=== PATIENT | male | born 1935 | race Caucasian/White ===

== ENCOUNTER 2018-04-13 17:35 | Inpatient (IN) | payer MEDICARE, OTHER ==
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
[2018-04-13 18:25] LABS: ABS Basophils 0.1 10^3/ul (0-0.2); ABS Eosinophils 0 10^3/ul (0-0.6); ABS Lymphocytes 1.7 10^3/ul (1.0-4.8); ABS Monocytes 0.8 10^3/ul (0-0.8); ABS Neutrophils 5.8 10^3/ul (1.5-7.7); ABS Nucleated RBC 0 10^3/ul; Eosinophil % 0.4 %; Hematocrit 42 % (42-52); Lymphocyte % 20.3 %; Mean Corpuscular HGB Conc 34 g/dl (31-36); Mean Corpuscular Hemoglobin 30 pg (27-31); Mean Corpuscular Volume 89 fL (80-94); Mean Platelet Volume 9.1 fL (7.4-10.4); Nucleated Red Blood Cells % 0.1; Platelet Count 239 10^3/ul (150-450); Red Blood Count 4.72 10^6/ul (4.00-5.40); Red Cell Distribution Width 13 % (10.5-15); White Blood Count 8.5 10^3/ul (3.5-10.8)
[2018-04-13 18:39] LABS: INR 1.14 (0.77-1.02)
[2018-04-13 18:42] LABS: BUN/Creatinine Ratio 15.5 (8-20); C Reactive Protein 182.66 mg/L (<8.01); Calcium 9.5 mg/dL (8.6-10.3); EGFR Non-African American 15.7 (>60); Globulin 4.1 g/dL (2-4); Potassium 4.3 mmol/L (3.5-5.0); Total Protein 8.1 g/dL (6.4-8.9)
[2018-04-13 18:45] LABS: Troponin I 0.06 ng/mL (<0.04)
[2018-04-13 18:46] LABS: Alcohol < 10 mg/dL (<10)
[2018-04-13 21:03] LABS: TSH (Thyroid Stimulating Horm) 1.74 mcIU/mL (0.34-5.60)
[2018-04-13 21:11] LABS: Erythrocyte Sed Rate 99 mm/Hr (0-40)
[2018-04-13] MEDS ORDERED: Senna TAB PO PRN (21:12)
[2018-04-13] MEDS ORDERED: Acetaminophen TAB* 325 MG PO PRN (21:12)
[2018-04-13] MEDS ORDERED: Docusate CAP* 100 MG PO PRN (21:12)
[2018-04-13] MEDS ORDERED: Ondansetron INJ* 2 MG/ML VIAL IV PRN (21:12)
[2018-04-13] MEDS ORDERED: Al Hydrox/Mg Hydrox/Simet LIQ* 30 ML UDC PO PRN (21:12)
[2018-04-13 21:32] LABS: Uric Acid 10.8 mg/dL (4.4-7.6)
--- NOTE | 2018-04-13 21:37 | PN ---
Progress Note - Progress Note Date of Service: 04/13/18 Note: Full consult note dictated. R ankle erythema with joint pain. After verbal consent, ankle tapped. Sample taken to labs for eval.
[2018-04-13 21:49] LABS: Body Fluid Source Synovial Fluid
[2018-04-13 23:40] LABS: Body Fluid Mono 14 %
[2018-04-13] MEDS: Heparin VIAL(*) 5000 UNITS/ML VIAL (FIVE THOUSAND) SUBCUT SCH (23:51)
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
[2018-04-14] MEDS: Heparin VIAL(*) 5000 UNITS/ML VIAL (FIVE THOUSAND) SUBCUT SCH ×3 (05:48→21:25)
--- NOTE | 2018-04-14 06:08 | PN ---
Progress Note - Progress Note Date of Service: 04/14/18 Note: Preliminary read of synovial fluid shows crystals which is consistent with gout - will start prednisone 40 mg PO QD as colchicine is C/I with his renal failure
[2018-04-14 07:40] LABS: ABS Basophils 0.1 10^3/ul (0-0.2); ABS Eosinophils 0.1 10^3/ul (0-0.6); ABS Lymphocytes 1.3 10^3/ul (1.0-4.8); ABS Monocytes 0.7 10^3/ul (0-0.8); ABS Neutrophils 5.3 10^3/ul (1.5-7.7); ABS Nucleated RBC 0 10^3/ul; Eosinophil % 0.7 %; Hematocrit 42 % (42-52); Hemoglobin 14.4 g/dl (14.0-18.0); Lymphocyte % 17.4 %; Mean Corpuscular HGB Conc 34 g/dl (31-36); Mean Corpuscular Hemoglobin 30 pg (27-31); Mean Corpuscular Volume 89 fL (80-94); Mean Platelet Volume 9.2 fL (7.4-10.4); Nucleated Red Blood Cells % 0.1; Platelet Count 231 10^3/ul (150-450); Red Blood Count 4.74 10^6/ul (4.00-5.40); Red Cell Distribution Width 14 % (10.5-15); White Blood Count 7.4 10^3/ul (3.5-10.8)
[2018-04-14 08:01] LABS: Albumin 3.9 g/dL (3.2-5.2); BUN/Creatinine Ratio 17.1 (8-20); Calcium 9.2 mg/dL (8.6-10.3); EGFR African American 20.1 (>60); EGFR Non-African American 16.6 (>60); Globulin 3.9 g/dL (2-4); Indirect Bilirubin 0.9 mg/dL (0.3-1.0); Total Bilirubin 1.1 mg/dL (0.2-1.0); Total Protein 7.8 g/dL (6.4-8.9)
[2018-04-14] MEDS ORDERED: Pneumococcal *Vac Polyvalent 0.5 ML VIAL IM ONE (09:00)
[2018-04-14 10:20] LABS: Urine Appearance Cloudy; Urine Bacteria Absent (Absent); Urine Bilirubin Negative (Negative); Urine Blood 1+ (Negative); Urine Color Yellow; Urine Glucose 1+(50 mg/dL) (Negative); Urine Ketones Trace (Negative); Urine Nitrite Negative (Negative); Urine Protein 2+(100 mg/dL) (Negative); Urine Red Blood Cell 2+(6-10/hpf) (Absent); Urine Specific Gravity 1.014 (1.010-1.030); Urine Urobilinogen Negative (Negative); Urine White Blood Cell Trace(0-5/hpf) (Absent)
--- NOTE | 2018-04-14 10:39 | ECHO ---
Patient: VIOLET [facility] Rec#: [id number] : 1935 Date: 04/14/2018 Age: 82y Height: 165.1 cm / 65.0 in Weight: 72.6 kg / 160.0 lbs Sex: M BSA: 1.8 Room#: [facility] Admit Date#: 04/13/2018 Type: Inpatient Referring: Kristal Lowe Reading: Austyn Mckeon MD Licensing Director: Louisa Sherman RN RDCS Transthoracic Echocardiogram Indication: Syncope BP: 135/92 HR: 88 Rhythm: NSR with PVCs Findings History: Gout Technical Comments: The study quality is fair. Left Ventricle: The left ventricular chamber size is normal. Moderate concentric left ventricular hypertrophy is observed. Global left ventricular wall motion and contractility are within normal limits. There is normal left ventricular systolic function. The estimated ejection fraction is 55-60%. Abnormal left ventricular diastolic filling is observed, consistent with impaired relaxation. Left Atrium: The left atrium is mildly dilated. Right Ventricle: The right ventricular chamber size and systolic function are within normal limits. Right Atrium: The right atrial cavity size is normal. Aortic Valve: The aortic valve structure is normal. The aortic valve leaflets are severely thickened with reduced systolic excursion. There is trace to mild aortic regurgitation. There is moderate to severe aortic stenosis. The mean gradient of the aortic valve is 31.3 mmHg. The peak instantaneous gradient of the aortic valve is 51.3 mmHg. The aortic valve area, by peak velocities, is calculated at 0.6 cm2. The aortic valve area, by VTI's, is calculated at 0.7 cm2. The dimensionless index is 0.24-0.29. Highest aortic valve velocity was acquired with Pedoff in right sternal border position. Mitral Valve: Severe mitral annular calcification present. The mitral valve leaflets are mildly thickened. There is mild mitral regurgitation. There is borderline mitral stenosis. Tricuspid Valve: The tricuspid valve leaflets are normal. There is trace tricuspid regurgitation. Unable to estimate the right ventricular systolic pressure. There is no tricuspid stenosis. Pulmonic Valve: The pulmonic valve structure is not well visualized. There is a trace pulmonic regurgitation. There is no pulmonic stenosis. Pericardium: There is no significant pericardial effusion. Aorta: The ascending aorta is not well visualized. There is no dilatation of the aortic arch. There is no dilation of the aortic root. Pulmonary Artery: The main pulmonary artery is not well visualized. Venous: The inferior vena cava appears normal in size. There is an approximate 50% respiratory change in the inferior vena cava dimension. Summary: There was not any prior study for comparison. Conclusions The left ventricular chamber size is normal. Moderate concentric left ventricular hypertrophy is observed. The estimated ejection fraction is 55-60%. Abnormal left ventricular diastolic filling is observed, consistent with impaired relaxation. The left atrium is mildly dilated. There is moderate to severe aortic stenosis. There is trace to mild aortic regurgitation. Severe mitral annular calcification present. There is mild mitral regurgitation. There is trace tricuspid regurgitation. Unable to estimate the right ventricular systolic pressure. Measurements Name Value Normal Range RVIDd (AP) 2D 2.4 cm (0.9 - 2.6) RVDdMajor (2D) 2.6 cm (2.2 - 4.4) RAd ISD 4CH 4.3 cm (3.4 - 4.9) RA (A4C)W 3.1 cm (2.9 - 4.6) IVSd (2D) 1.3 cm (0.6 - 1) LVPWd (2D) 1.3 cm (0.6 - 1) LVIDd (2D) 4 cm (3.6 - 5.4) LVIDs (2D) 2.8 cm - LV FS (2D) 30 % (25 - 45) Aortic Annulus 1.8 cm (1.4 - 2.6) Ao root diameter (2D) 2.4 cm (2.1 - 3.5) Aortic arch 2.2 cm (1.8 - 3.4) LA dimension (AP) 2D 2.9 cm (2.3 - 3.8) LAd ISD 4CH 4.9 cm (2.9 - 5.3) LA ISD 4CH W 3.8 cm (2.5 - 4.5) Name Value Normal Range LA ESV SP 4CH (A/L) 56 ml - LA ESV SP 2CH (A/L) 84 ml - LA ESV BP (A/L) 69 ml - LA ESV BP (A/L) index 38.5 ml/m2 - LA ESV SP 4CH (MOD) 51 ml - LA ESV SP 2CH (MOD) 75 ml - Name Value Normal Range MV E-wave Vmax 0.8 m/sec - MV deceleration time 267 msec - MV A-wave Vmax 1.5 m/sec - MV E:A ratio 0.53 ratio - LV septal e' Vmax 0.04 m/sec - LV lateral e' Vmax 0.07 m/sec - LV E:e' septal ratio 20 ratio - LV E:e' lateral ratio 11.4 ratio - Name Value Normal Range AV Vmax 3.6 m/sec - AV VTI 68.3 cm - AV peak gradient 51.3 mmHg - AV mean gradient 31.3 mmHg - LVOT diameter 1.8 cm - LVOT Vmax 0.85 m/sec - LVOT VTI 19.7 cm - LVOT peak gradient 2.9 mmHg - LVOT mean gradient 1.4 mmHg - DOI (VTI) 0.29 ratio - DOI (Vmax) 0.24 ratio - BRANDI (continuity Vmax) 0.6 cm2 - BRANDI (continuity VTI) 0.7 cm2 - THERESE Vmax 0.47 m/sec - Name Value Normal Range MV Vmax 1.8 m/sec - MV VTI 34 cm - MV peak gradient 12.6 mmHg - MV mean gradient 3.8 mmHg - MV PHT 78 msec - MVA (PHT) 2.8 cm2 - MVA (continuity VTI) 1.6 cm2 - Name Value Normal Range PV Vmax 1.2 m/sec -
[2018-04-14 10:46] LABS: Barbiturates Urine Screen None Detected (None Detect); Benzodiazepine Urine Screen None Detected (None Detect); Urine Cannabinoids Screen None Detected (None Detect)
[2018-04-14 11:44] LABS: Urine Creatinine Concentration 96.82 mg/dL
[2018-04-14] MEDS: Tamsulosin CAP* 0.4 MG PO SCH (11:51)
[2018-04-14] MEDS: predniSONE TAB* 20 MG PO SCH (11:51)
--- NOTE | 2018-04-14 14:02 | PN ---
Progress Note - Progress Note Date of Service: 04/14/18 SOAP: Subjective: []Patient was seen and examined at bedside. He has right ankle pain with any ROM or palpation of the ankle. He does have a history of gout in this same ankle. Denies other joint or extremity pain. Objective: []General: Well appearing, NAD RLE: Medial aspect of the ankle is erythematous and tender to gentle palpation, no streaking of erythema proximally. Active flexion and extension of the ankle intact though limited by pain, able to invert and suzanne the foot as well also limited by pain. 2+ DP pulse, sensation intact to light touch distally Assessment: []Gout R ankle Plan: []Fluid analysis shows monosodium urate crystals: consistent with gout rather than septic joint. WBAT Continue prednisone as renal function does not support NSAID treatment at this time Vital Signs Temp 98.5 F 04/14/18 03:25 Pulse 94 04/14/18 03:25 Resp 16 04/14/18 03:25 BP 135/92 04/14/18 03:25 Pulse Ox 98 04/14/18 03:25 Intake & Output 04/13/18 04/14/18 04/14/18 18:59 06:59 18:59 Intake Total 0 Output Total 0 Balance 0 Weight 160 lb 175 lb 6.4 oz Intake: Oral 0 Output: Urine 0 Other: # Bowel Movements 0 Laboratory Last Values WBC 7.4 10^3/ul (3.5-10.8) 04/14/18 07:33 RBC 4.74 10^6/ul (4.00-5.40) 04/14/18 07:33 Hgb 14.4 g/dl (14.0-18.0) 04/14/18 07:33 Hct 42 % (42-52) 04/14/18 07:33 MCV 89 fL (80-94) 04/14/18 07:33 MCH 30 pg (27-31) 04/14/18 07:33 MCHC 34 g/dl (31-36) 04/14/18 07:33 RDW 14 % (10.5-15) 04/14/18 07:33 Plt Count 231 10^3/ul (150-450) 04/14/18 07:33 MPV 9.2 fL (7.4-10.4) 04/14/18 07:33 Neut % (Auto) 71.3 % 04/14/18 07:33 Lymph % (Auto) 17.4 % 04/14/18 07:33 [place] % (Auto) 9.7 % 04/14/18 07:33 Eos % (Auto) 0.7 % 04/14/18 07:33 Baso % (Auto) 0.9 % 04/14/18 07:33 Absolute Neuts (auto) 5.3 10^3/ul (1.5-7.7) 04/14/18 07:33 Absolute Lymphs (auto) 1.3 10^3/ul (1.0-4.8) 04/14/18 07:33 Absolute Monos (auto) 0.7 10^3/ul (0-0.8) 04/14/18 07:33 Absolute Eos (auto) 0.1 10^3/ul (0-0.6) 04/14/18 07:33 Absolute Basos (auto) 0.1 10^3/ul (0-0.2) 04/14/18 07:33 Absolute Nucleated RBC 0 10^3/ul 04/14/18 07:33 Nucleated RBC % 0.1 04/14/18 07:33 ESR 99 mm/Hr (0-40) H 04/13/18 18:06 INR (Anticoag Therapy) 1.14 (0.77-1.02) H 04/13/18 18:06 APTT 32.0 seconds (26.0-36.3) 04/13/18 18:06 D-Dimer, Quantitative 469 ng/mL (Less Than 230) H 04/13/18 18:06 Sodium 138 mmol/L (135-145) 04/14/18 07:33 Potassium 4.0 mmol/L (3.5-5.0) 04/14/18 07:33 Chloride 105 mmol/L (101-111) 04/14/18 07:33 Carbon Dioxide 19 mmol/L (22-32) L 04/14/18 07:33 Anion Gap 14 mmol/L (2-11) H 04/14/18 07:33 BUN 61 mg/dL (6-24) H 04/14/18 07:33 Creatinine 3.56 mg/dL (0.67-1.17) H 04/14/18 07:33 Est GFR ( Amer) 20.1 (>60) 04/14/18 07:33 Est GFR (Non-Af Amer) 16.6 (>60) 04/14/18 07:33 BUN/Creatinine Ratio 17.1 (8-20) 04/14/18 07:33 Glucose 100 mg/dL (70-100) 04/14/18 07:33 Lactic Acid 1.1 mmol/L (0.5-2.0) 04/13/18 18:08 Uric Acid 10.8 mg/dL (4.4-7.6) H 04/13/18 18:06 Calcium 9.2 mg/dL (8.6-10.3) 04/14/18 07:33 Total Bilirubin 1.10 mg/dL (0.2-1.0) H 04/14/18 07:33 Direct Bilirubin 0.20 mg/dL (0.03-0.18) H 04/14/18 07:33 Indirect Bilirubin 0.9 mg/dL (0.3-1.0) 04/14/18 07:33 AST 17 U/L (13-39) 04/14/18 07:33 ALT 20 U/L (7-52) 04/14/18 07:33 Alkaline Phosphatase 73 U/L (34-104) 04/14/18 07:33 Troponin I 0.06 ng/mL (<0.04) H* 04/14/18 00:05 C-Reactive Protein 182.66 mg/L (<8.01) H 04/13/18 18:06 B-Natriuretic Peptide 154 pg/mL (<=100) H 04/13/18 18:09 Total Protein 7.8 g/dL (6.4-8.9) 04/14/18 07:33 Albumin 3.9 g/dL (3.2-5.2) 04/14/18 07:33 Globulin 3.9 g/dL (2-4) 04/14/18 07:33 Albumin/Globulin Ratio 1.0 (1-3) 04/14/18 07:33 TSH 1.74 mcIU/mL (0.34-5.60) 04/13/18 18:08 Urine Color Yellow 04/14/18 09:45 Urine Appearance Cloudy 04/14/18 09:45 Urine pH 5.0 (5-9) 04/14/18 09:45 Ur Specific [place] 1.014 (1.010-1.030) 04/14/18 09:45 Urine Protein 2+(100 mg/dl) (Negative) A 04/14/18 09:45 Urine Ketones Trace (Negative) A 04/14/18 09:45 Urine Blood 1+ (Negative) A 04/14/18 09:45 Urine Nitrate Negative (Negative) 04/14/18 09:45 Urine Bilirubin Negative (Negative) 04/14/18 09:45 Urine Urobilinogen Negative (Negative) 04/14/18 09:45 Ur Leukocyte Esterase Negative (Negative) 04/14/18 09:45 Urine WBC (Auto) Trace(0-5/hpf) (Absent) 04/14/18 09:45 Urine RBC (Auto) 2+(6-10/hpf) (Absent) A 04/14/18 09:45 Urine Bacteria Absent (Absent) 04/14/18 09:45 Ur Creatinine Concen 96.82 mg/dL 04/14/18 09:45 U Sodium Concentration 48 mmol/L 04/14/18 09:45 Urine Glucose 1+(50 mg/dl) (Negative) A 04/14/18 09:45 Fluid Source Synovial fluid 04/13/18 21:35 Fluid Volume 1.0 mL 04/13/18 21:35 Fluid Color Yellow 04/13/18 21:35 Fluid Appearance Cloudy 04/13/18 21:35 Fluid WBC 4384 /mcL (0-538350) 04/13/18 21:35 Fluid RBC 654 /mcL 04/13/18 21:35 Fluid Tot Cell Count 100 04/13/18 21:35 Fluid Neutrophils 82 % 04/13/18 21:35 Fluid Lymphocytes 4 % 04/13/18 21:35 Fluid Monocytes 14 % 04/13/18 21:35 Fluid Cell Count Rvw By 04/13/18 21:35 Fluid Crystals Monosodium urate (None Seen) A 04/13/18 21:35 Fluid Crystal Interp 04/13/18 21:35 Fluid Comment 04/13/18 21:35 Urine Opiates Screen None detected (None Detect) 04/14/18 09:45 Ur Barbiturates Screen None detected (None Detect) 04/14/18 09:45 Ur Phencyclidine Scrn None detected (None Detect) 04/14/18 09:45 Ur Amphetamines Screen None detected (None Detect) 04/14/18 09:45 U Benzodiazepines Scrn None detected (None Detect) 04/14/18 09:45 Urine Cocaine Screen None detected (None Detect) 04/14/18 09:45 U Cannabinoids Screen None detected (None Detect) 04/14/18 09:45 Serum Alcohol < 10 mg/dL (<10) 04/13/18 18:08
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
--- NOTE | 2018-04-14 20:26 | PN ---
Progress Note - Progress Note Date of Service: 04/14/18 Note: Pt seen and examined. Gout in right ankle. Responding to medications. Pt with renal insufficiency as well as potential need for valve replacement. Pt lying comfortably in bed. Able to move ankle more. Talking on phone. Verbalized understanding and will see pt back on an as needed basis.
[2018-04-15] MEDS: Heparin VIAL(*) 5000 UNITS/ML VIAL (FIVE THOUSAND) SUBCUT SCH ×3 (06:24→21:57)
[2018-04-15] MEDS: Tamsulosin CAP* 0.4 MG PO SCH (09:29)
[2018-04-15] MEDS: predniSONE TAB* 20 MG PO SCH (09:29)
[2018-04-15] MEDS ORDERED: Magnesium Sulfate 1 GM IV* 1 GM/100 ML BAG IV ONE (13:31)
[2018-04-15 14:40] LABS: ABS Basophils 0 10^3/ul (0-0.2); ABS Eosinophils 0 10^3/ul (0-0.6); ABS Lymphocytes 0.6 10^3/ul (1.0-4.8); ABS Monocytes 0.2 10^3/ul (0-0.8); ABS Neutrophils 7.9 10^3/ul (1.5-7.7); ABS Nucleated RBC 0 10^3/ul; Eosinophil % 0 %; Hematocrit 40 % (42-52); Hemoglobin 13.6 g/dl (14.0-18.0); Mean Corpuscular HGB Conc 34 g/dl (31-36); Mean Corpuscular Hemoglobin 30 pg (27-31); Mean Corpuscular Volume 88 fL (80-94); Mean Platelet Volume 9.3 fL (7.4-10.4); Nucleated Red Blood Cells % 0; Platelet Count 256 10^3/ul (150-450); Red Blood Count 4.59 10^6/ul (4.00-5.40); Red Cell Distribution Width 13 % (10.5-15); White Blood Count 8.7 10^3/ul (3.5-10.8)
[2018-04-15 15:12] LABS: Albumin 3.8 g/dL (3.2-5.2); Calcium 9.1 mg/dL (8.6-10.3); EGFR African American 21.9 (>60); EGFR Non-African American 18.1 (>60); Globulin 3.8 g/dL (2-4); Magnesium 2.4 mg/dL (1.9-2.7); Potassium 4.1 mmol/L (3.5-5.0); Total Bilirubin 0.5 mg/dL (0.2-1.0); Total Protein 7.6 g/dL (6.4-8.9)
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
[2018-04-15] MEDS ORDERED: NS 0.9% 500 ML* 500 ML IV ONE (17:16)
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
[2018-04-16] MEDS: Heparin VIAL(*) 5000 UNITS/ML VIAL (FIVE THOUSAND) SUBCUT SCH ×3 (05:29→21:28)
[2018-04-16] MEDS: Tamsulosin CAP* 0.4 MG PO SCH (08:47)
[2018-04-16] MEDS: predniSONE TAB* 20 MG PO SCH (08:47)
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
[2018-04-16] MEDS ORDERED: Sodium Bicarbonate (ANTACID)* 650 MG TAB PO SCH ×2 (10:20→14:00)
[2018-04-16 10:52] LABS: BUN/Creatinine Ratio 23.8 (8-20); Calcium 9.1 mg/dL (8.6-10.3); EGFR African American 22.4 (>60); EGFR Non-African American 18.5 (>60); Magnesium 2.5 mg/dL (1.9-2.7)
[2018-04-16 11:50] LABS: Potassium 4.3 mmol/L (3.5-5.0)
[2018-04-16] MEDS: Sodium Citrate/Citric Acid* 15 ML UDC PO SCH ×3 (12:52→21:28)
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
[2018-04-16] MEDS: Metoprolol Tartrate TAB* 25 MG PO SCH ×2 (15:12→21:28)
[2018-04-16 16:40] LABS: HDL Cholesterol 35.5 mg/dL
[2018-04-17] MEDS: Heparin VIAL(*) 5000 UNITS/ML VIAL (FIVE THOUSAND) SUBCUT SCH ×3 (05:12→21:55)
[2018-04-17] MEDS: Sodium Citrate/Citric Acid* 15 ML UDC PO SCH ×3 (09:09→21:54)
[2018-04-17] MEDS: predniSONE TAB* 20 MG PO SCH (09:10)
[2018-04-17] MEDS: Tamsulosin CAP* 0.4 MG PO SCH (09:10)
[2018-04-17] MEDS: Metoprolol Tartrate TAB* 25 MG PO SCH ×2 (09:10→21:54)
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
[2018-04-17] MEDS ORDERED: Atorvastatin* 20 MG TAB PO SCH (21:00)
[2018-04-18] MEDS: Heparin VIAL(*) 5000 UNITS/ML VIAL (FIVE THOUSAND) SUBCUT SCH ×2 (05:36→13:48)
[2018-04-18 07:00] LABS: BUN/Creatinine Ratio 29.9 (8-20); Calcium 8.3 mg/dL (8.6-10.3); EGFR African American 28.4 (>60); EGFR Non-African American 23.5 (>60); Potassium 4.3 mmol/L (3.5-5.0)
[2018-04-18 08:30] VITALS: BP 141/91
[2018-04-18] MEDS: Sodium Citrate/Citric Acid* 15 ML UDC PO SCH ×2 (08:39→13:48)
[2018-04-18] MEDS: Tamsulosin CAP* 0.4 MG PO SCH (08:41)
[2018-04-18] MEDS: predniSONE TAB* 20 MG PO SCH (08:41)
[2018-04-18] MEDS: Metoprolol Tartrate TAB* 25 MG PO SCH (08:41)
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
== END 2018-04-18 16:08 | disposition home or self-care (01) | DRG 469 ==
LOC: ED 17:35 → MEDTELE 21:12
PROVIDERS: ADMIT Pediatrics; ATTEND Internal Medicine
PROC: 4A00X4Z Measurement of Central Nervous Electrical Activity, External Approach (ICD-10-PCS; principal; 2018-04-14)
PROC: 0T9B70Z Drainage of Bladder with Drainage Device, Via Natural or Artificial Opening (ICD-10-PCS; 2018-04-14)
DX: N17.9 Acute kidney failure, unspecified (principal); N13.8 Other obstructive and reflux uropathy; E87.2 Acidosis; I42.9 Cardiomyopathy, unspecified; I47.2 Ventricular tachycardia; R55 Syncope and collapse; N32.0 Bladder-neck obstruction; M10.9 Gout, unspecified; I10 Essential (primary) hypertension; M25.571 Pain in right ankle and joints of right foot; Z66 Do not resuscitate; S01.81XA Laceration without foreign body of other part of head, initial encounter; H57.89 Other specified disorders of eye and adnexa; I08.3 Combined rheumatic disorders of mitral, aortic and tricuspid valves; N13.30 Unspecified hydronephrosis; N40.1 Benign prostatic hyperplasia with lower urinary tract symptoms; N40.0 Benign prostatic hyperplasia without lower urinary tract symptoms; N32.3 Diverticulum of bladder; N08 Glomerular disorders in diseases classified elsewhere; Z82.49 Family history of ischemic heart disease and other diseases of the circulatory system; Z87.891 Personal history of nicotine dependence; Z82.3 Family history of stroke; V49.9XXA Car occupant (driver) (passenger) injured in unspecified traffic accident, initial encounter; Y92.9 Unspecified place or not applicable; Z79.82 Long term (current) use of aspirin
CPT/HCPCS: 36415; 36600; 70551; 76770; 80048; 80053; 80061; 80307; 80320; 81003; 81015; 82248; 82570; 82803; 83605; 83735; 83880; 84300; 84443; 84484; 84550; 85025; 85379; 85610; 85652; 85730; 86140; 87040; 87070; 87077; 87086; 87150; 87205; 87640; 87641; 89051; 89060; 90732; 93005; 93306; 95819; 99284; A9270-GY; G0480; J1644; J3475; J7512